=== PATIENT | male | born 1995 | race Caucasian/White ===

== ENCOUNTER 2019-06-29 00:03 | Emergency (ER) | payer OTHER ==
[2019-06-29 00:12] VITALS: RESP 18; TEMP 97.7
--- NOTE | 2019-06-29 00:50 | ED ---
Psych HPI - General Chief Complaint: Psychiatric Symptoms Stated Complaint: PD Petition Time Seen by Provider: 06/29/19 00:18 Source: patient, police Mode of arrival: ambulatory - History of Present Illness Initial Comments: Patient is 24-year-old man with history of PTSD, who is brought to have psychiatric evaluation. Patient reports that he had been describing being in a dark place to a friend of his over the phone. His friend had gone to a class and then after the class she had tried to call him back but he did not answer the phone. The friend then phoned police with concerns that he was suicidal. Patient admits to discussing suicidal ideation. MD Complaint: suicidal ideation, feels depressed -: hour(s) Associated Psychiatric Symptoms: depression History of same: No Quality: constant Improves With: none Worsens With: none Associated Symptoms: denies other symptoms - Related Data Allergies Allergy/AdvReac Type Severity Reaction Status Date / Time No Known Allergies Allergy Verified 06/29/19 00:12 Review of Systems ROS Statement: Those systems with pertinent positive or pertinent negative responses have been documented in the HPI. ROS Other: All systems not noted in ROS Statement are negative. Constitutional: Denies: fever, chills Respiratory: Denies: cough, dyspnea Cardiovascular: Denies: chest pain, palpitations Gastrointestinal: Denies: abdominal pain, vomiting, diarrhea Genitourinary: Denies: dysuria, frequency Musculoskeletal: Denies: back pain Neurological: Denies: headache, weakness, numbness Psychiatric: Reports: depression, suicidal thoughts. Denies: anxiety, auditory hallucinations, visual hallucinations, homicidal thoughts Past Medical History Past Medical History: No Reported History Past Surgical History: No Surgical Hx Reported Past Psychological History: No Psychological Hx Reported Smoking Status: Light tobacco smoker Past Alcohol Use History: Rare Past Drug Use History: None Reported General Exam Limitations: no limitations General appearance: alert, in no apparent distress Head exam: Present: atraumatic, normocephalic Eye exam: Present: normal appearance Respiratory exam: Present: normal lung sounds bilaterally. Absent: respiratory distress, wheezes, rales, rhonchi, stridor Cardiovascular Exam: Present: regular rate, normal rhythm, normal heart sounds. Absent: systolic murmur, diastolic murmur, rubs, gallop GI/Abdominal exam: Present: soft. Absent: tenderness Neurological exam: Present: alert Psychiatric exam: Present: depressed, suicidal ideation. Absent: agitated, anxious, flat affect, manic, homicidal ideation Skin exam: Present: warm, dry, intact, normal color. Absent: rash Course Vital Signs 06/29/19 00:09 Temperature 97.7 F Pulse Rate 106 H Respiratory 18 Rate Blood Pressure 153/97 O2 Sat by Pulse 100 Oximetry Medical Decision Making - Medical Decision Making Patient is 24-year-old man here for psychiatric evaluation. The patient is very [place] and admits to depression and having thoughts of suicide. He did discuss with the suicide hotline and states that it did help him. He is [place] for safety and states that he does have a good follow-up plan. He states if he is feeling worse she will call the suicide hotline again or return to the emergency department immediately. Disposition Clinical Impression: Mood disorder Disposition: HOME SELF-CARE Condition: Good Is patient prescribed a controlled substance at d/c from ED?: No Referrals: None,Stated [Primary Care Provider] - 1-2 days
[2019-06-29 03:27] VITALS: BP 131/84; PULSE 88
== END 2019-06-29 03:26 | disposition home or self-care (01) ==
LOC: EC 00:03
DX: F32.9 Major depressive disorder, single episode, unspecified (principal); R45.851 Suicidal ideations; F17.210 Nicotine dependence, cigarettes, uncomplicated
CPT/HCPCS: 82075; 99285